=== PATIENT | male | born 1970 | race African-American/Black ===

== ENCOUNTER 2020-05-16 07:58 | Emergency (ER) | payer OTHER ==
[~2020-05-16] VITALS: Ht 167.6 cm; Wt 88.5 kg
[2020-05-16 08:21] VITALS: TEMP 102.3
[2020-05-16 09:49] LABS: PLATELET COUNT 193 K/uL (142-355)
[2020-05-16 10:00] LABS: POTASSIUM 4.4 mmol/L (3.6-5.2)
[2020-05-16 11:40] VITALS: BP 127/73
== END 2020-05-16 11:40 | disposition home or self-care (01) ==
LOC: ED 07:58
DX: U07.1 COVID-19 (principal); R06.09 Other forms of dyspnea
CPT/HCPCS: 36415; 36600; 80053; 81000; 82805; 83605; 85027; 85379; 87040; 87502; 87635; 87651; 93005; 96365; 96375; 99284; G2023; J0456; J0696; J2930; U00003

== ENCOUNTER 2022-06-10 07:15 | Outpatient (CLI) | payer OTHER | END 2022-06-10 19:20 | disposition home or self-care (01) | LOC: RAD 07:15 | PROVIDERS: ATTEND Nurse Practitioner Family | DX: M54.89 Other dorsalgia (principal); W11.XXXS Fall on and from ladder, sequela ==

== ENCOUNTER 2023-01-16 23:39 | Emergency (ER) | payer OTHER ==
[~2023-01-16] VITALS: Ht 167.6 cm; Wt 77.1 kg
[2023-01-17 01:25] VITALS: BP 132/77; TEMP 98.4
== END 2023-01-17 01:25 | disposition home or self-care (01) ==
LOC: ED 23:39
DX: H65.191 Other acute nonsuppurative otitis media, right ear (principal); M26.621 Arthralgia of right temporomandibular joint; H61.21 Impacted cerumen, right ear
CPT/HCPCS: 96372; 99283; J0696; J1885